=== PATIENT | female | born 2000 | race Caucasian/White ===

== ENCOUNTER 2024-06-25 19:37 | Emergency (ER) | payer BC, SELFPAY ==
[2024-06-25 19:38] VITALS: BMI 59.1
[2024-06-25 19:45] VITALS: BP 191/113
[2024-06-25 20:10] LABS: Urine Albumin Negative (Neg - Trace); Urine Bilirubin Negative (Negative); Urine Character Clear (Clear); Urine Color Yellow; Urine Glucose Negative (Negative); Urine Ketone Negative (Negative); Urine Leukocyte Negative (Negative); Urine Nitrite Negative (Negative); Urine Occult Blood 4+ (Negative); Urine Specific Gravity 1.025 (<1.030); Urine Urobilinogen Negative (Neg - 1+)
[2024-06-25 20:14] LABS: Hematocrit 42.7 % (37.0-47.0); Hemoglobin 14.1 g/dL (12.0-16.0); Mean Corpuscular Hgb 25.7 pg (27.0-31.0); Mean Corpuscular Volume 77.9 fL (81.0-99.0); Platelet Count 437 10^3/uL (130-400); Red Blood Cell Count 5.48 10^6/uL (4.20-5.40); Red Cell Dist. Width 14.8 % (11.5-14.5)
[2024-06-25 20:16] LABS: Urine Squamous Cell >30 /LPF (Few)
[2024-06-25 20:18] LABS: Urine Bacteria Many (Negative); Urine Mucus Few; Urine White Cell 0-2 /HPF (0-5)
[2024-06-25 20:30] LABS: ALT (SGPT) 15 U/L (0-35); AST (SGOT) 21 U/L (14-36); Albumin 4.4 g/dl (3.5-5.0); Alkaline Phosphatase 92 U/L (38-126); Blood Urea Nitrogen 18 mg/dl (7-17); Calcium 9.9 mg/dl (8.4-10.2); Carbon Dioxide 26 mmol/L (22-30); Chloride 104 mmol/L (98-107); Glucose 87 mg/dl (70-99); Potassium 4.3 mmol/L (3.5-5.1); Sodium 137 mmol/L (135-145); Total Bilirubin 0.3 mg/dl (0.2-1.3); Total Protein 7.4 g/dl (6.3-8.2); eGFR > 60.00
[2024-06-25 20:38] LABS: % Basophils 0.7 % (0-2); % Eosinophils 3.1 % (0-6); % Immature Granulocytes 0.2 % (0-0.5); % Lymphocytes 35.5 % (20.5-51.1); % Monocytes 4.5 % (1.7-9.3); Absolute Basophils 0.1 10^3/uL (0-0.2); Absolute Eosinophils 0.5 10^3/uL (0-0.7); Absolute Lymphocytes 5.3 10^3/uL (1.2-3.4); Absolute Monocytes 0.7 10^3/uL (0.1-0.6); Absolute Neutrophils 8.4 10^3/uL (1.4-6.5); Nucleated Red Blood Cells % 0 %
[2024-06-25 22:05] VITALS: BP 108/76
--- NOTE | 2024-06-25 22:28 | ED.GENMED ---
History of Present Illness
General
Chief Complaint: Vaginal Bleeding
Source: patient
Exam Limitations: none
Time Seen by Provider: 06/25/24 22:09
History of Present Illness
History of Present Illness:
This is a 24 year old female that comes in with c/o vaginal bleeding for 14 days. States that her bleeding started out slow and now she is changing her pad about every hour. States that she does have a history of PCOS. States that she was a patient
of Dr. Roldan and she called them and was told to come to the ER. States that she has abd cramping, slight headache occasionally and dizziness today. Denies any fever, chills, chest pain, SOB, nausea, vomiting, diarrhea, urinary burning.
Past History
Past History
ED Past Medical History: Asthma, Psychiatric (ADHD, Anxiety, Denies Bipolar states that this was a wrong diagnosis ) and Other (Polycystic ovarian syndrome)
ED Past Surgical History: None
Social History
Tobacco: Smoker
Alcohol: Occasional
Personal: Single
Living: alone
Review of Systems
Review of Systems
All Other Systems: ROS reviewed and negative except as documented in HPI and ROS
Constitutional: Reports no symptoms; Denies fever or chills
EENT: Reports no symptoms
Respiratory: Reports no symptoms; Denies cough or trouble breathing
Cardiac: Reports no symptoms; Denies chest pain
ABD/GI: Reports abdominal pain (Cramping); Denies nausea, vomiting or diarrhea
: Reports no symptoms; Denies dysuria, frequency or urgency
Musculoskeletal: Reports no symptoms
Skin: Reports no symptoms
Neurological: Reports dizzy and headache
Psychiatric: Reports no symptoms
Phy Exam
General Physical Exam
General Presentation: no apparent distress
General age: appears stated age
General Skin: warm and dry
General Habitus: obese
General Mental: alert
General Hydration: appears well hydrated
ENT Exam
ENT Exam: TM's normal, pharynx normal and neck supple
Eye Exam
Eye Exam: EOMI
Cardiovascular Exam
Cardiovascular Exam: no edema, normal peripheral pulses and tachycardia
Pulmonary Exam
Pulmonary Exam: lungs clear, no respiratory distress, no rales, chest non tender, no crackles, no rhonchi, no wheezing and no cough
Gastrointestinal Exam
Gastrointestinal Exam: normal bowel sounds, non tender, soft, no organomegaly, no pulsatile mass and non distended
Genitourinary Exam Female
Exam Female: vaginal bleeding (Moderate amount on pad)
Musculoskeletal Exam
Musculoskeletal Exam: full ROM and no edema
Skin Exam
Skin Exam: normal color, warm/dry, no rash and no petechia
Psychiatric Exam
Psychiatric Exam: normal mood/affect
Course
Orders/Labs/Results
Orders:
Orders
06/25/24 19:56
Type+Screen Urgent
Complete Blood Count/With Diff Urgent
Comprehensive Metabolic Panel Urgent
HCG, Serum Qualitative Screen Urgent
Comment: ADD ON
TSH Reflex To Free T4 Urgent
Comment: ADD ON
06/25/24 20:00
Urine Culture Reflexed from UA [Urinalysis Reflex To Culture] Urgent
Date Specimen was Collected: 06/25/24
Time Specimen was Collected: 19:48
Urine Microscopic Reflex Cult Urgent
Urine Culture Urgent
LENORE Source: U
Specimen Description:
Date Specimen was Collected: 06/25/24
Time Specimen was Collected: 19:48
06/25/24 22:10
Add On- LAB Urgent
Tests Added?: HCG QUAL
06/25/24 22:28
0.9% Sodium Chloride 1000 ml [Nss] 1,000 ml IV BOLUS
US Pelvis Transvaginal Only Urgent
Reason For Exam: abnormal vaginal bleeding
06/25/24 22:29
Add On- LAB Urgent
Tests Added?: TSH with Free T4
Abnormal Lab Results
06/25/24 06/25/24
19:56 20:00
WBC 15.0 H 10^3/uL
(4.8-10.8)
RBC 5.48 H 10^6/uL
(4.20-5.40)
MCV 77.9 L fL
(81.0-99.0)
MCH 25.7 L pg
(27.0-31.0)
RDW 14.8 H %
(11.5-14.5)
Plt Count 437 H 10^3/uL
(130-400)
Absolute Neuts (auto) 8.4 H 10^3/uL
(1.4-6.5)
Absolute Lymphs (auto) 5.3 H 10^3/uL
(1.2-3.4)
Absolute Monos (auto) 0.7 H 10^3/uL
(0.1-0.6)
BUN 18 H mg/dl
(7-17)
Ur Occult Blood Reflex 4+ A
(Negative)
Urine RBC 3-6 A /HPF
(0-2)
Urine Bacteria (Reflex) Many A
(Negative)
06/25/24 19:56
06/25/24 19:56
Leukocytosis (consistent with prior labs) Plt slightly elevated. Very slight Dehydration. Urine negative for infection.
Vital Signs
Initial and Last Documented VS:
Initial Vital Signs
Temp Pulse Resp BP Pulse Ox
98.1 F 112 20 191/113 96
06/25/24 19:45 06/25/24 19:45 06/25/24 19:45 06/25/24 19:45 06/25/24 19:45
Last Documented Vital Signs
Temp Pulse Resp BP Pulse Ox
98.1 F 87 19 128/77 96
06/25/24 19:45 06/26/24 00:03 06/26/24 00:03 06/26/24 00:26 06/26/24 00:24
MDM/Problems Addressed
Differential Diagnosis Includes:
PCOS, Metrorrhagia
MDM/Problems Addressed:
This is a 24 year old female that comes in with c/o vaginal bleeding for the past 14 days. States that she is changing her pad about every hour. States that she has abd cramping.
Will check labs, and Ultrasound
Back into see patient. Reviewed US report, blood work and urine. Will have patient follow up with the [facility] for further evaluation and treatment. Explained that they may want to put patent on control and patient states that he doesn't want
that. Will discharge patient home.
Chronic conditions affecting care:
PCOS
Acute Exacerbation and/or Progression of Chronic Illness:
PCOS
*Radiology
Radiology exam reviewed: radiology read reviewed (US-Nabothian cysts are present. No focal abnormaltiy of the uterus or endometrium. Both ovaries are within normal limits of size. There are multiple small uniform follicles within each ovary, and the
patient has a reported history of PCOS.)
*Pulse Oximetry
Patient hypoxic: no
*EKG
Interpreted by ED Provider?: NA
Rate: EKG- N/A
*Utilities Estimator And Drafter Interpretation
Rate: Utilities Estimator And Drafter- N/A
*Critical Care Note
Total Time (30-74mins, 75-104mins- exclusive of procedures): Not Applicable
ED Attending Note
-
Portions of this chart may have been created with voice recognition software.� Occasional wrong word or��sound alike� substitutions may have occurred due to the inherent limitations of voice recognition software.
Discharge Plan
Departure
Patient Disposition: Home (Routine Discharge)
Date of Disposition: 06/26/24
Time of Disposition: 00:42
Patient with high blood pressure during this ER visit?: No
Condition: Good
Covid-19: Not Applicable
Discharge Problem:
Abnormal vaginal bleeding
Instructions: Heavy Periods (DC), Bleeding Between Periods
Prescriptions:
No Action
aripiprazole 10 MG tablet
15 mg PO DAILY
[place] Carbonate
300 mg PO .AM
[place] Carbonate
1,200 mg PO .HS
Lorazepam
0.5 mg PO .AM
Patient Comments:
1mg in PM
[place] 3 mg-0.02 mg Tablet
1 tab PO DAILY
METFORMIN HCl
1,000 mg PO BID
lorazepam 0.5 MG tablet
1.5 mg PO HS
sulfamethoxazole-trimethoprim [Bactrim DS] 800-160 mg tablet
1 tab PO Q12H 5 Days Qty: 10 0RF
Referrals:
Charisse Woods, DO [Active] - Call in 1-3 days for appt
NONE,* [Family Provider] -
Activity Restrictions/Additional Instructions:
As discussed, your blood work shows that your WBC are slightly elevated. Your urine is negative for infection and your Thyroid function is normal. Please increase your water intake to 8-8oz glasses daily. Follow up with the [facility] for further
evaluation. IF YOU HAVE ANY OTHER CONCERNS PLEASE RETURN TO THE EMERGENCY ROOM
Interventions
Interventions:
*Risk Screen - Suicide Last Done: 06/25/24 19:45
*General Assessment Last Done: 06/25/24 19:45
*Neglect/Abuse Screening Last Done: 06/25/24 19:45
ED- Fall Risk Assessment Last Done: 06/25/24 22:08
*ED COVID-19 Vaccine History Last Done: 06/25/24 22:12
ED-Female Genitourinary Assessment Last Done: 06/25/24 22:08
Discharge Date and Time
Print Language: OCCITAN
[2024-06-25 22:43] LABS: HCG, Serum Qualitative Screen Negative
[2024-06-25 23:17] LABS: TSH Reflex To Free T4 2.08 uIU/ml (0.47-4.68)
[2024-06-26 00:26] VITALS: BP 128/77
== END 2024-06-26 00:57 | disposition home or self-care (01) ==
LOC: EMR 19:37
PROVIDERS: EMERGENCY PHYSICIAN Emergency Medicine
DX: N93.9 Abnormal uterine and vaginal bleeding, unspecified (principal); E28.2 Polycystic ovarian syndrome; E86.0 Dehydration; F17.200 Nicotine dependence, unspecified, uncomplicated; F41.9 Anxiety disorder, unspecified; F90.9 Attention-deficit hyperactivity disorder, unspecified type; J45.909 Unspecified asthma, uncomplicated; Z90.721 Acquired absence of ovaries, unilateral
CPT/HCPCS: 99284; 76830; 80053; 81003; 81015; 84443; 84703; 85025; 86850; 86900; 86901; 87077; 87086; 87147

== ENCOUNTER 2025-01-06 11:45 | Emergency (ER) | payer BC, SELFPAY ==
[2025-01-06 11:47] VITALS: BP 149/104
--- NOTE | 2025-01-06 12:22 | ED.GENMED ---
History of Present Illness
General
Chief Complaint: Musculo-Skeletal Complaint
Source: patient
Time Seen by Provider: 01/06/25 12:14
History of Present Illness
History of Present Illness:
24-year-old female presents to the emergency room complaining of pain in her right ankle and right foot. 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 When she stepped backwards
she felt something pop in her right foot and ankle. She has had pain with weightbearing since then. No other injuries. She can walk okay when she walks 'on her tippy toes'.
Past History
Past History
ED Past Medical History: Asthma, Psychiatric (ADHD, Anxiety, Denies Bipolar states that this was a wrong diagnosis ) and Other (Polycystic ovarian syndrome)
ED Past Surgical History: None
Social History
Tobacco: Smoker
Alcohol: Occasional
Personal: Single
Living: alone
Phy Exam
Physical Exam
Physical Exam:
General: Awake, Alert, Oriented X3. No acute distress.
Vitals: unremarkable
Head: Atraumatic
Eyes: Pupils equal, EOMI
Neuro: Nonfocal
Skin: Warm, dry, no rash
Extremities: pulses equal b/l, no edema. Tender palpation over the medial ankle ligaments. No instability of ankle note.
Course
Orders/Labs/Results
Orders:
Orders
01/06/25 11:49
Foot, Right 3 View [CR Foot - Right Min 3 Views] Urgent
Comment:
Reason For Exam: pain and swelling
01/06/25 12:19
Ankle, Right 3 view CR [CR Ankle - Right Min 3 Views *] Urgent
Comment:
Reason For Exam: tender medial mal
01/06/25 13:26
Stirrup Splint Left-Treatment ONCE
Vital Signs
Initial and Last Documented VS:
Initial Vital Signs
Temp Pulse Resp BP Pulse Ox
98.5 F 88 18 149/104 96
01/06/25 11:47 01/06/25 11:47 01/06/25 11:47 01/06/25 11:47 01/06/25 11:47
Last Documented Vital Signs
Temp Pulse Resp BP Pulse Ox
98.5 F 88 18 149/104 96
01/06/25 11:47 01/06/25 11:47 01/06/25 11:47 01/06/25 11:47 01/06/25 11:47
MDM/Problems Addressed
Differential Diagnosis Includes:
sprain, foot fx, ankle fx
MDM/Problems Addressed:
Foot x-rays appear negative. Ankle films show what appears to be an avulsion fracture off of the medial malleolus. Patient will be placed in a ankle stirrup. Stable for discharge home. Follow-up with Ortho as an outpatient.
*Radiology
Radiology exam reviewed: preliminary read by ED provider (My interpretation of the patient's foot x-ray is normal. Ankle x-ray is avulsion off of the medial malleolus)
*Pulse Oximetry
Patient hypoxic: no
*Critical Care Note
Total Time (30-74mins, 75-104mins- exclusive of procedures): Not Applicable
ED Attending Note
-
Portions of this chart may have been created with voice recognition software.� Occasional wrong word or��sound alike� substitutions may have occurred due to the inherent limitations of voice recognition software.
Discharge Plan
Departure
Patient Disposition: Home (Routine Discharge)
Date of Disposition: 01/06/25
Time of Disposition: 13:25
Patient with high blood pressure during this ER visit?: No
Condition: Good
Discharge Problem:
Avulsion fracture of medial malleolus
Instructions: Ankle Fracture (DC)
Prescriptions:
No Action
aripiprazole 10 MG tablet
15 mg PO DAILY
[place] Carbonate
300 mg PO .AM
[place] Carbonate
1,200 mg PO .HS
Lorazepam
0.5 mg PO .AM
Patient Comments:
1mg in PM
[place] 3 mg-0.02 mg Tablet
1 tab PO DAILY
METFORMIN HCl
1,000 mg PO BID
lorazepam 0.5 MG tablet
1.5 mg PO HS
sulfamethoxazole-trimethoprim [Bactrim DS] 800-160 mg tablet
1 tab PO Q12H 5 Days Qty: 10 0RF
Referrals:
Kaley Jeffers CRNP [Family Provider] -
Boone France MD [Active] -
Stand Alone Forms: Return to Work
Interventions
Interventions:
*Risk Screen - Suicide Last Done: 01/06/25 11:47
*General Assessment Last Done: 01/06/25 11:47
*Neglect/Abuse Screening Last Done: 01/06/25 11:47
*ED COVID-19 Vaccine History Last Done: 01/06/25 11:47
*Nursing Disposition Last Done: 01/06/25 13:38
Discharge Date and Time
Discharge Date/Time: 01/06/25 13:40
Print Language: BELARUSIAN
== END 2025-01-06 13:40 | disposition home or self-care (01) ==
LOC: EMR 11:45
PROVIDERS: EMERGENCY PHYSICIAN Emergency Medicine; FAMILY PHYSICIAN Nurse Practitioner Adult Health
DX: S82.51XA Displaced fracture of medial malleolus of right tibia, initial encounter for closed fracture (principal); X58.XXXA Exposure to other specified factors, initial encounter; Y99.0 Civilian activity done for income or pay; J45.909 Unspecified asthma, uncomplicated; F17.200 Nicotine dependence, unspecified, uncomplicated
CPT/HCPCS: 29515; 99283; 73610; 73630